=== PATIENT | male | born 1995 | race Caucasian/White ===

== ENCOUNTER 2021-08-23 18:20 | Emergency (ER) | payer OTHER, SELFPAY ==
[2021-08-23 18:40] VITALS: BP 140/88; PULSE 100; RESP 20; TEMP 37.3; O2SAT 98; BMI 31.9
--- NOTE | 2021-08-23 19:06 | CRLHL7_ITS ---
For Patients: As a result of the Century Cures Act, medical imaging exams and procedure reports are released immediately into your electronic medical record. You may view this report before your referring provider. If you have questions, please contact your health care provider. Indication: Shortness of breath Comparison: Two-view chest June 24, 2017 Technique: Single AP view chest Findings: There is hyperinflation. There are mildly increased interstitial markings seen throughout the bilateral hemithoraces likely representing mild pulmonary vascular congestion. No definite dense consolidation, effusion or pneumothorax. The cardiomediastinal silhouette is within normal limits. The bony thorax is grossly intact. Impression: Hyperinflation with mildly increased interstitial markings likely representing pulmonary vascular congestion and/or bronchial thickening. Dictated by Trevon Lyman MD @ 08/23/2021 7:45:57 PM (Electronically Signed)
--- NOTE | 2021-08-23 19:23 | ED_ITS ---
HPI - General Adult General Chief complaint: Fever Stated complaint: Fever Short of Breath Time Seen by Provider: 08/23/21 18:42 History of Present Illness HPI narrative: 26-year-old male coming in today complaining of a fever that has been going on going on day 4. He complains of a headache and pain in the back of his neck as well. He has been taking Tylenol around the clock which does help his symptoms. His appetite has been down. He denies cough, chest pain, shortness of breath. He denies any recent traveling. He denies any abdominal pain. He denies any diarrhea, or urinary symptoms such as increased frequency, urgency or dysuria. He denies any bug bites or skin rashes. He denies any sick contacts that he is aware of. He denies any camping or being out in the [place]. He denies any drug use, specifically denies any IV drug use. He states that he was seen in the [facility] (formerly [facility]] yesterday morning and had negative COVID influenza testing-he was given Imitrex to take. He states that the Imitrex did dull his headache somewhat. However he spiked another fever of 102 in the evening so he went to [address] where he had a normal CBC and BMP. He also states that they attempted 8 times to do a lumbar puncture but were unsuccessful. He continues with a fever and headache today. States that he took Tylenol just before coming to the ER this evening. Related Data Home Medications Medication Instructions Recorded Confirmed bupropion HCl 150 mg 24 hr tablet, mg PO 08/23/21 extended release Allergies Allergy/AdvReac Type Severity Reaction Status Date / Time No Known Drug Allergies Allergy Verified 08/23/21 18:39 Review of Systems Status of ROS: Reports: 10 or more systems reviewed and unremarkable except as noted in History and below [facility] Medical History (Updated 08/23/21 @ 20:52 by Kelin Yan MD) No significant past medical history Surgical History (Updated 08/23/21 @ 20:50 by Nidhi Mcgee RN) No significant past surgical history Social History Smoking Status: Never smoker Do you use any of these nicotine containing products: None Second hand tobacco smoke exposure: No Non-prescribed substance use: denies use Exam Narrative: Exam Narrative: Well-nourished well-developed patient in no acute distress. Alert and oriented. Answers questions appropriately. Mood and affect are appropriate. Thoughts are goal oriented and rational. No tangential or magical thinking noted. Patient speaks in full sentences without needing to catch his breath. Speech is not slurred or pressured. He is not confused. He is alert oriented x3. HEENT: Normocephalic atraumatic. Pupils are equally round reactive to light. Extraocular muscles are intact. Conjunctivae are moist without any icterus noted. Moist mucous membranes. Posterior pharynx is normal. Neck is soft without any lymphadenopathy or thyromegaly. No masses are appreciated. Cardiovascular: Heart is regular rate and rhythm S1 and S2 are present without any murmurs. Lungs: Clear to auscultation bilaterally no wheezes rhonchi or rales are appreciated. Patient takes deep breaths without any discomfort. Abdomen: Soft and nontender nondistended with normal bowel sounds. No guarding or rebound. No masses or organomegaly appreciated. Extremities: Bilateral lower extremities are without edema. Normal DP and PT pulses. Skin: Well perfused without any obvious rashes. Back: Normal appearance with no pain. He has no tenderness to palpation of the cervical, thoracic or lumbar spine. He has a Band-Aid in place where he had the lumbar puncture attempts, no evidence of infection or bleeding. He has a negative Kernig's and Brudzinski sign. He is able to lift his head off the bed without difficulty. Has full range of motion at the cervical spine with flexion, extension, side way bending and rotation. Const: Vital Signs, click to edit/add: Vital Signs - 24 hr 08/23/21 18:40 Temperature 99.1 F Pulse Rate [Right Pulse Oximeter] 100 Respiratory Rate 20 Blood Pressure [Le ft Upper Arm] 140/88 H Pulse Oximetry 98 Course Vital Signs Vital signs: Initial Vital Signs Temperature 99.1 F 08/23/21 18:40 Temperature Source Temporal Artery Scan 08/23/21 18:40 Pulse Rate 100 08/23/21 18:40 Respiratory Rate 20 08/23/21 18:40 Blood Pressure 140/88 H 08/23/21 18:40 Blood Pressure Mean 105 08/23/21 18:40 Blood Pressure Position Sitting 08/23/21 18:40 Pulse Oximetry 98 08/23/21 18:40 Oxygen Delivery Method 08/23/21 18:40 Vital Signs Temperature 99.1 F 08/23/21 18:40 Pulse Rate 100 08/23/21 18:40 Respiratory Rate 20 08/23/21 18:40 Blood Pressure 140/88 H 08/23/21 18:40 Pulse Oximetry 98 08/23/21 18:40 Temperature 99.1 F 08/23/21 18:40 Pulse Rate 100 08/23/21 18:40 Respiratory Rate 20 08/23/21 18:40 Blood Pressure 140/88 H 08/23/21 18:40 Pulse Oximetry 98 08/23/21 18:40 Medical Decision Making MDM Narrative Medical decision making narrative: Fever of unknown origin. Labs were fairly unremarkable. There is no elevated white cell count. He did have elevated monocyte to be consistent with a viral infection. We did discuss the possibility of meningitis however patient does not appear ill or toxic and the discomfort he has in his neck appears to be musculoskeletal in nature verses meningeal irritation. The pain does not radiate down his back and he is able to move his neck without difficulty. Given this, with shared decision making, we decided not to proceed with a lumbar puncture at this time. Certainly if his symptoms get worse he is encouraged to return. Urine culture, blood culture, Lyme test all pending at this time. Given normal chest exam and that he is not short of breath, coughing or having any other respiratory symptom I do not think that we need to be concerned about the chest x-ray reading at this time. Lab Data Lab results reviewed: Yes I reviewed the patient's lab results Labs: Lab Results 08/23/21 08/23/21 08/23/21 Range/Units 19:20 19:20 19:20 WBC 7.32 (4.50-11.00) K/uL RBC 4.22 L (4.30-5.90) m/uL Hgb 12.2 L (13.5-17.5) gm/dL Hct 36.5 L (37.0-53.0) % MCV 87 (80-100) fL MCH 29 (26-34) pg MCHC 33 (32-36) gm/dL RDW Coeff of Cele 12.6 (11.5-15.5) % Plt Count 226 (140-440) K/uL Neut % (Auto) 68.8 (42.0-72.0) % Lymph % (Auto) 12.2 L (20-44) % [place] % (Auto) 17.2 H (0.0-11.0) % Eos % (Auto) 1.1 (0.0-7.0) % Baso % (Auto) 0.4 (0.0-3.0) % Neut # (Auto) 5.04 (1.7-7.0) K/uL Lymph # (Auto) 0.90 (0.90-2.90) K/uL [place] # (Auto) 1.30 H (0.00-0.90) K/UL Eos # (Auto) 0.08 (0.00-0.50) K/uL Baso # (Auto) 0.03 (0.00-0.30) K/uL Abs Immat Gran (auto) 0.02 (0.00-0.30) K/uL ESR 75 H (2-15) mm/hr Sodium 137 (135-149) mmol/L Potassium 3.4 L (3.6-5.1) mmol/L Chloride 106 (96-114) mmol/L Carbon Dioxide 23 (20-32) mmol/L BUN 14 (5-24) mg/dL Creatinine 0.7 (0.5-1.5) mg/dL Estimated Creat Clear 158.51 Glucose 125 H (60-115) mg/dL Lactate (0.5-1.9) mmol/L Calcium 8.1 L (8.4-10.6) mg/dL Total Bilirubin (0.1-1.5) mg/dL Direct Bilirubin (0.0-0.5) mg/dL AST (12-35) U/L ALT (4-50) U/L Alkaline Phosphatase (40-150) U/L Total Protein (6.0-8.3) g/dL Albumin (3.3-5.0) g/dL Urine Color (Yellow) Urine Appearance (Clear) Urine pH (5.0-8.5) Ur Specific [place] (1.000-1.030) Urine Protein (Negative) Urine Glucose (UA) (Negative) Urine Ketones (Negative) Urine Blood (Negative) Urine Nitrite (Negative) Urine Bilirubin (Negative) Urine Urobilinogen (0.2-1.0) Ur Leukocyte Esterase (Negative) Urine RBC (0-2) Urine WBC (0-5) Ur Squamous Epith Cells (None-Few) Urine Bacteria (None) SARS-CoV-2 (PCR) (Negative) Monoscreen Negative (Negative) Influenza Type A (PCR) (Negative) Influenza Type B (PCR) (Negative) 08/23/21 08/23/21 08/23/21 Range/Units 19:20 19:20 19:20 WBC (4.50-11.00) K/uL RBC (4.30-5.90) m/uL Hgb (13.5-17.5) gm/dL Hct (37.0-53.0) % MCV (80-100) fL MCH (26-34) pg MCHC (32-36) gm/dL RDW Coeff of Cele (11.5-15.5) % Plt Count (140-440) K/uL Neut % (Auto) (42.0-72.0) % Lymph % (Auto) (20-44) % [place] % (Auto) (0.0-11.0) % Eos % (Auto) (0.0-7.0) % Baso % (Auto) (0.0-3.0) % Neut # (Auto) (1.7-7.0) K/uL Lymph # (Auto) (0.90-2.90) K/uL [place] # (Auto) (0.00-0.90) K/UL Eos # (Auto) (0.00-0.50) K/uL Baso # (Auto) (0.00-0.30) K/uL Abs Immat Gran (auto) (0.00-0.30) K/uL ESR (2-15) mm/hr Sodium (135-149) mmol/L Potassium (3.6-5.1) mmol/L Chloride (96-114) mmol/L Carbon Dioxide (20-32) mmol/L BUN (5-24) mg/dL Creatinine (0.5-1.5) mg/dL Estimated Creat Clear Glucose (60-115) mg/dL Lactate 1.0 (0.5-1.9) mmol/L Calcium (8.4-10.6) mg/dL Total Bilirubin 0.8 (0.1-1.5) mg/dL Direct Bilirubin 0.4 (0.0-0.5) mg/dL AST 39 H (12-35) U/L ALT 41 (4-50) U/L Alkaline Phosphatase 71 (40-150) U/L Total Protein 6.8 (6.0-8.3) g/dL Albumin 3.7 (3.3-5.0) g/dL Urine Color (Yellow) Urine Appearance (Clear) Urine pH (5.0-8.5) Ur Specific [place] (1.000-1.030) Urine Protein (Negative) Urine Glucose (UA) (Negative) Urine Ketones (Negative) Urine Blood (Negative) Urine Nitrite (Negative) Urine Bilirubin (Negative) Urine Urobilinogen (0.2-1.0) Ur Leukocyte Esterase (Negative) Urine RBC (0-2) Urine WBC (0-5) Ur Squamous Epith Cells (None-Few) Urine Bacteria (None) SARS-CoV-2 (PCR) Negative SARS-CoV-2 (Negative) Monoscreen (Negative) Influenza Type A (PCR) Negative PCR FLU A (Negative) Influenza Type B (PCR) Negative PCR FLU B (Negative) 08/23/21 Range/Units 20:33 WBC (4.50-11.00) K/uL RBC (4.30-5.90) m/uL Hgb (13.5-17.5) gm/dL Hct (37.0-53.0) % MCV (80-100) fL MCH (26-34) pg MCHC (32-36) gm/dL RDW Coeff of Cele (11.5-15.5) % Plt Count (140-440) K/uL Neut % (Auto) (42.0-72.0) % Lymph % (Auto) (20-44) % [place] % (Auto) (0.0-11.0) % Eos % (Auto) (0.0-7.0) % Baso % (Auto) (0.0-3.0) % Neut # (Auto) (1.7-7.0) K/uL Lymph # (Auto) (0.90-2.90) K/uL [place] # (Auto) (0.00-0.90) K/UL Eos # (Auto) (0.00-0.50) K/uL Baso # (Auto) (0.00-0.30) K/uL Abs Immat Gran (auto) (0.00-0.30) K/uL ESR (2-15) mm/hr Sodium (135-149) mmol/L Potassium (3.6-5.1) mmol/L Chloride (96-114) mmol/L Carbon Dioxide (20-32) mmol/L BUN (5-24) mg/dL Creatinine (0.5-1.5) mg/dL Estimated Creat Clear Glucose (60-115) mg/dL Lactate (0.5-1.9) mmol/L Calcium (8.4-10.6) mg/dL Total Bilirubin (0.1-1.5) mg/dL Direct Bilirubin (0.0-0.5) mg/dL AST (12-35) U/L ALT (4-50) U/L Alkaline Phosphatase (40-150) U/L Total Protein (6.0-8.3) g/dL Albumin (3.3-5.0) g/dL Urine Color Yellow (Yellow) Urine Appearance Clear (Clear) Urine pH 6.5 (5.0-8.5) Ur Specific [place] 1.010 (1.000-1.030) Urine Protein Negative (Negative) Urine Glucose (UA) Negative (Negative) Urine Ketones Negative (Negative) Urine Blood Trace-intact A (Negative) Urine Nitrite Negative (Negative) Urine Bilirubin Negative (Negative) Urine Urobilinogen 1.0 (0.2-1.0) Ur Leukocyte Esterase Negative (Negative) Urine RBC 0-2 (0-2) Urine WBC 0-2 (0-5) Ur Squamous Epith Cells None (None-Few) Urine Bacteria None (None) SARS-CoV-2 (PCR) (Negative) Monoscreen (Negative) Influenza Type A (PCR) (Negative) Influenza Type B (PCR) (Negative) Imaging Data Chest x-ray: Attestation: I have reviewed the pertinent imaging results. Radiologist's impression: Findings: There is hyperinflation. There are mildly increased interstitial markings seen throughout the bilateral hemithoraces likely representing mild pulmonary vascular congestion. No definite dense consolidation, effusion or pneumothorax. The cardiomediastinal silhouette is within normal limits. The bony thorax is grossly intact. Impression: Hyperinflation with mildly increased interstitial markings likely representing pulmonary vascular congestion and/or bronchial thickening. Discharge Plan Discharge Clinical Impression: Fever of unknown origin Patient Disposition: Home, Self-Care Condition: Stable Additional Instructions: Stay well hydrated and continue to use Tylenol or ibuprofen as needed for fever reduction. Return to the ER if your symptoms are getting worse. Fever and symptoms can last several days longer before they get better. We did draw blood cultures, urine culture and a Lyme test. If any of these things require further treatment you will be notified in the next 2-3 days. Prescriptions: No Action bupropion HCl 150 mg tablet extended release 24 hr PO 0RF Label Comments: TAKE 1 TABLET BY MOUTH EVERY DAY IN THE MORNING Follow Up/Referrals: Provider,Not a Local [Primary Care Provider] - Stand Alone Forms: [employer] Info Instructions
[2021-08-23 19:40] LABS: Basophils Absolute Auto 0.03 K/uL (0.00-0.30); Basophils Percent Auto 0.4 % (0.0-3.0); Eosinophils Absolute Auto 0.08 K/uL (0.00-0.50); Eosinophils Percent Auto 1.1 % (0.0-7.0); Hematocrit 36.5 % (37.0-53.0); Hemoglobin* 12.2 gm/dL (13.5-17.5); Immature Granulocytes Abs Auto 0.02 K/uL (0.00-0.30); Lymphocytes Percent Auto 12.2 % (20-44); Mean Corpuscular HGB Conc 33 gm/dL (32-36); Mean Corpuscular Hemoglobin 29 pg (26-34); Mean Corpuscular Volume 87 fL (80-100); Monocytes Percent Auto 17.2 % (0.0-11.0); Neutrophils Absolute Auto 5.04 K/uL (1.7-7.0); Neutrophils Percent Auto 68.8 % (42.0-72.0); Platelet Count* 226 K/uL (140-440); RDW Coefficient of Variation % 12.6 % (11.5-15.5); Red Blood Count 4.22 m/uL (4.30-5.90); White Blood Count* 7.32 K/uL (4.50-11.00)
[2021-08-23 19:49] LABS: Slide Review Reflex No
[2021-08-23 20:20] LABS: PCR FLU A Negative PCR FLU A (Negative); PCR FLU B Negative PCR FLU B (Negative)
[2021-08-23 20:23] LABS: SARS PCR* Negative SARS-CoV-2 (Negative)
[2021-08-23 20:27] LABS: Mono Screen* Negative (Negative)
[2021-08-23 20:38] LABS: Appearance Urine Clear (Clear); Bilirubin Urine Negative (Negative); Blood Urine Trace-intact (Negative); Color Urine Yellow (Yellow); Glucose Urine Negative (Negative); Ketones Urine Negative (Negative); Leukocyte Esterase Urine Negative (Negative); Nitrite Urine Negative (Negative); Protein Urine Negative (Negative); pH Urine 6.5 (5.0-8.5)
[2021-08-23 20:45] LABS: Albumin* 3.7 g/dL (3.3-5.0)
[2021-08-23 20:46] LABS: Chloride* 106 mmol/L (96-114); Potassium* 3.4 mmol/L (3.6-5.1); Sodium* 137 mmol/L (135-149)
[2021-08-23 20:48] LABS: Alanine Aminotransferase* 41 U/L (4-50); Alkaline Phosphatase* 71 U/L (40-150); Aspartate Amino Transferase* 39 U/L (12-35); Bilirubin Direct* 0.4 mg/dL (0.0-0.5); Bilirubin Total* 0.8 mg/dL (0.1-1.5); Creatinine* 0.7 mg/dL (0.5-1.5); Est. Creatinine Clearance* 158.51; Estimated Glomerular Filt Rate 129.52; Total Protein* 6.8 g/dL (6.0-8.3)
[2021-08-23 20:49] LABS: Blood Urea Nitrogen* 14 mg/dL (5-24); Calcium* 8.1 mg/dL (8.4-10.6); Carbon Dioxide* 23 mmol/L (20-32); Glucose* 125 mg/dL (60-115)
[2021-08-23 20:55] LABS: Erythrocyte SedimentationRate* 75 mm/hr (2-15)
[2021-08-23 20:58] LABS: RBC Urine 0-2 (0-2); WBC Urine 0-2 (0-5)
== END 2021-08-23 21:33 | disposition home or self-care (01) ==
PROVIDERS: Emergency Provider Family Medicine
DX: R50.9 Fever, unspecified (principal)
CPT/HCPCS: 36415; 71045; 80048; 80076; 81001; 83605; 85025; 85651; 86140; 86308; 86618; 87040; 87086; 87502; 87635; 99283; 99284